=== PATIENT | male | born 1940 | race Caucasian/White ===

== ENCOUNTER 2016-11-10 11:48 | Inpatient (IN) | payer OTHER ==
[2016-11-10] MEDS ORDERED: ONDANSETRON 4 MG/2 ML VIAL IVP ONE (12:24)
[2016-11-10] MEDS ORDERED: LIDOCAINE 2% VISCOUS 15 ML UDCUP PO ONE (12:28)
[2016-11-10] MEDS ORDERED: LET GEL TOPICAL 1 EA SYR TP ONE (12:29)
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
[2016-11-10] MEDS ORDERED: IOPAMIDOL (ISOVUE-300) 100 ML BTL ONE (13:23)
[2016-11-10 15:15] LABS: % IMMATURE GRANULYOCYTES 0.7 % (0.0-1.1); ABSOLUTE IMMATURE GRANULOCYTES 0.11 10^3/uL (0.00-0.10); ADD DIFF? NO; ADD MORPH? NO; ADD SCAN? NO; ATYPICAL LYMPHOCYTE FLAG 0 (0-99); FRAGMENT RBC FLAG 0 (0-99); HEMATOCRIT 38.7 % (40.0-51.0); LEFT SHIFT FLG 30 (0-99); LIPEMIA HEMOLYSIS FLAG 80 (0-99); MEAN CELL HEMOGLOBIN 32.1 pg (27.9-34.1); MEAN CELL HEMOGLOBIN CONCENTR. 33.6 g/dL (32.4-36.7); MEAN CELL VOLUME 95.6 fL (81.5-99.8); MEAN PLATELET VOLUME 9.7 fL (8.7-11.7); PLATELET CLUMPS FLAG 0 (0-99); PLATELET COUNT 248 10^3/uL (150-400); RED BLOOD CELL COUNT 4.05 10^6/uL (4.40-6.38); RED CELL DISTRIBUTION WIDTH 12.3 % (11.5-15.2)
[2016-11-10 15:36] LABS: ANION GAP 9 mEq/L (8-16); CALCIUM 9.1 mg/dL (8.5-10.4); CARBON DIOXIDE 25 mEq/l (22-31); CHLORIDE 107 mEq/L (97-110); CREATININE 0.9 mg/dL (0.7-1.3); GLOMERULAR FILTRATION RATE > 60; GLUCOSE 130 mg/dL (70-100); POTASSIUM 4.2 mEq/L (3.5-5.2); SODIUM 141 mEq/L (134-144)
[2016-11-10] MEDS ORDERED: ONDANSETRON 4 MG/2 ML VIAL IVP PRN (15:41)
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
[2016-11-10] MEDS: HYDROmorphONE/DILAUDID 1 MG/ML SYR IVP PRN ×2 (17:02→22:06)
[2016-11-10] MEDS: OXYCODONE/APAP 5/325 TAB PO PRN ×2 (17:02→20:58)
[2016-11-10] MEDS: KETOROLAC 15 MG/1 ML SDV IVP SCH ×2 (18:04→23:23)
[2016-11-10 20:24] LABS: COLOR YELLOW; LEUKOCYTE ESTERASE,URINE NEGATIVE (NEGATIVE); NITRITE,URINE NEGATIVE (NEGATIVE)
[2016-11-10] MEDS: BACITRACIN OINTMENT 1 PACKET TP SCH (20:59)
--- NOTE | 2016-11-10 21:33 | TRAUMAPN ---
Assessment/Plan: c/o left thigh pain when trying to stand. pain difficult with movement. no cp or sob. CXR - repeat - no PTX. will add oxycontin and obtain left thigh xrays. Objective: Vital Signs Temp Pulse Resp BP Pulse Ox 36.8 C 64 16 111/68 90 L 11/10/16 19:58 11/10/16 19:58 11/10/16 19:58 11/10/16 19:58 11/10/16 19:58 Laboratory Results 11/10/16 15:00 11/10/16 15:00 11/09/16 11/10/16 11/11/16 05:59 05:59 05:59 Intake Total 400 Balance 400
[2016-11-10] MEDS: oxyCODONE IR 5 MG TAB PO PRN (23:23)
[2016-11-11] MEDS: oxyCODONE IR 5 MG TAB PO PRN ×2 (03:18→23:48)
[2016-11-11] MEDS: KETOROLAC 15 MG/1 ML SDV IVP SCH ×4 (06:13→23:42)
[2016-11-11] MEDS: ASPIRIN 81 MG CHEWABLE TAB PO SCH (08:39)
[2016-11-11] MEDS: DOCUSATE SODIUM 100 MG CAP PO SCH ×2 (08:40→20:59)
[2016-11-11] MEDS: ATORVASTATIN CALCIUM 20 MG TAB PO SCH (08:40)
[2016-11-11] MEDS: BACITRACIN OINTMENT 1 PACKET TP SCH ×2 (08:44→21:02)
[2016-11-11] MEDS ORDERED: PROMETHAZINE HCL 25 MG/ML INJ IVP PRN (11:07)
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
[2016-11-11 12:11] LABS: HEMATOCRIT 37.6 % (40.0-51.0); HEMOGLOBIN 12.5 g/dL (13.7-17.5); MEAN CELL HEMOGLOBIN 32.4 pg (27.9-34.1); MEAN CELL HEMOGLOBIN CONCENTR. 33.2 g/dL (32.4-36.7); MEAN CELL VOLUME 97.4 fL (81.5-99.8); RED BLOOD CELL COUNT 3.86 10^6/uL (4.40-6.38); RED CELL DISTRIBUTION WIDTH 12.7 % (11.5-15.2)
[2016-11-11 12:23] LABS: ANION GAP 7 mEq/L (8-16); CALCIUM 8.7 mg/dL (8.5-10.4); CARBON DIOXIDE 28 mEq/l (22-31); CHLORIDE 102 mEq/L (97-110); CREATININE 0.9 mg/dL (0.7-1.3); GLOMERULAR FILTRATION RATE > 60; GLUCOSE 125 mg/dL (70-100); SODIUM 137 mEq/L (134-144)
--- NOTE | 2016-11-11 12:30 | PDIAF ---
- Diagnosis Diagnosis: left scapula fracture, left hip contusion, - Medication Management Discharge Medications: Medications to Continue on Transfer Simvastatin [Zocor] 40 mg PO DAILY 09/08/15 [Last Taken 11/10/16] Aspirin [Aspirin 81mg (*)] 81 mg PO DAILY 11/10/16 [Last Taken 11/10/16] Herbals/Supplements -Info Only 1 ea PO DAILY 11/10/16 [Last Taken Unknown] Multivitamins [Multivitamin (*)] 1 each PO DAILY 11/10/16 [Last Taken Unknown] [place]-3 Fatty Acids [Fish Oil 1000 mg (*)] 1,000 mg PO DAILY 11/10/16 [Last Taken Unknown] Discharge Medications: Refer to the Discharge Home Medication list for PRN reason. - Orders Services needed: Physical Therapy Activity/Weight Bearing Restrictions: rom as tolerated left shoulder. wbat. sling prn. left hip wbat. rom as tolerated. f/u at one month orthopedics - Follow Up Care Current Providers and Referrals: Manohar Guadalupe MD [Medical Doctor] - Ester Glaser MD [Medical Doctor] -
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
[2016-11-11] MEDS: POLYETHYLENE GLYCOL 3350 17 GM PKT PO SCH (14:48)
[2016-11-11] MEDS: ACETAMINOPHEN 500 MG TAB PO SCH ×2 (14:48→20:58)
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
[2016-11-11] MEDS: FAMOTIDINE 20 MG TAB PO SCH (20:59)
[2016-11-11] MEDS ORDERED: FAMOTIDINE 20 MG/NACL 50 ML IV SCH (21:00)
--- NOTE | 2016-11-11 23:59 | SOAPPROG ---
Downtime Inpatient MD Late Entry SOAP Note: CT head reviewed/no ICH or signs of occult injury S MD Leonila, FACS
[2016-11-12] MEDS: ACETAMINOPHEN 500 MG TAB PO SCH ×3 (05:33→21:25)
[2016-11-12] MEDS: KETOROLAC 15 MG/1 ML SDV IVP SCH ×3 (05:34→17:13)
[2016-11-12] MEDS: FAMOTIDINE 20 MG TAB PO SCH ×2 (07:55→20:20)
[2016-11-12] MEDS: ASPIRIN 81 MG CHEWABLE TAB PO SCH (07:55)
[2016-11-12] MEDS: ATORVASTATIN CALCIUM 20 MG TAB PO SCH (07:55)
[2016-11-12] MEDS: DOCUSATE SODIUM 100 MG CAP PO SCH ×2 (07:55→20:20)
[2016-11-12] MEDS: POLYETHYLENE GLYCOL 3350 17 GM PKT PO SCH (07:59)
[2016-11-12] MEDS: oxyCODONE IR 5 MG TAB PO PRN ×3 (07:59→20:21)
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
[2016-11-12] MEDS: LIDOCAINE 5% 1 EA PATCH TD SCH (09:40)
[2016-11-12] MEDS: BACITRACIN OINTMENT 1 PACKET TP SCH ×2 (09:40→17:14)
[2016-11-12] MEDS: ENOXAPARIN 40 MG/0.4 ML SYR SC SCH (09:40)
[2016-11-12] MEDS: PATCH REMOVAL 1 EA PATCH TD SCH (20:24)
[2016-11-13] MEDS: KETOROLAC 15 MG/1 ML SDV IVP SCH ×5 (00:18→23:35)
[2016-11-13 04:55] LABS: ALANINE AMINOTRANSFERASE 35 IU/L (21-72); ALKALINE PHOSPHATASE 49 IU/L (38-126); ANION GAP 8 mEq/L (8-16); ASPARTATE AMINOTRANSFERASE 34 IU/L (17-59); BILIRUBIN,TOTAL 1.1 mg/dL (0.1-1.4); CALCIUM 8.8 mg/dL (8.5-10.4); CARBON DIOXIDE 27 mEq/l (22-31); CHLORIDE 104 mEq/L (97-110); CREATININE 0.9 mg/dL (0.7-1.3); GLOMERULAR FILTRATION RATE > 60; GLUCOSE 93 mg/dL (70-100); POTASSIUM 4.6 mEq/L (3.5-5.2); SODIUM 139 mEq/L (134-144); TOTAL PROTEIN 5.6 g/dL (6.3-8.2)
[2016-11-13] MEDS: ACETAMINOPHEN 500 MG TAB PO SCH ×3 (06:08→21:12)
[2016-11-13] MEDS: POLYETHYLENE GLYCOL 3350 17 GM PKT PO SCH (09:13)
[2016-11-13] MEDS: LIDOCAINE 5% 1 EA PATCH TD SCH (09:13)
[2016-11-13] MEDS: ENOXAPARIN 40 MG/0.4 ML SYR SC SCH (09:13)
[2016-11-13] MEDS: ATORVASTATIN CALCIUM 20 MG TAB PO SCH (09:14)
[2016-11-13] MEDS: DOCUSATE SODIUM 100 MG CAP PO SCH ×2 (09:14→21:13)
[2016-11-13] MEDS: ASPIRIN 81 MG CHEWABLE TAB PO SCH (09:14)
[2016-11-13] MEDS: FAMOTIDINE 20 MG TAB PO SCH ×2 (09:14→21:13)
[2016-11-13] MEDS: BACITRACIN OINTMENT 1 PACKET TP SCH ×2 (09:31→21:13)
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
--- NOTE | 2016-11-13 17:36 | WOCRNPDOC ---
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 Advised applying wound gel to both wounds and covering w/ Allevyn dressing. Left Shoulder Abrasion Dressing Type: Allevyn Life Dressing Description: Intact Exudate Amount: Scant Exudate Color: Reddish/Yellow Exudate Characteristic(s): Serosanguinous Integumentary Issue Intervention: Visualized Under Dressing Wound Bed Color: [place], Red Skin Integrity Problem Comment: Superficial abrasion w/ partial-thickness tissue loss noted. No associated swelling or rosy-wound erythema. Continue to keep site covered and moist for optimal wound healing.
[2016-11-13] MEDS: PATCH REMOVAL 1 EA PATCH TD SCH (21:18)
[2016-11-13 23:16] VITALS: PULSE 65
[2016-11-13] MEDS: oxyCODONE IR 5 MG TAB PO PRN (23:35)
[2016-11-14] MEDS: KETOROLAC 15 MG/1 ML SDV IVP SCH ×2 (05:54→15:01)
[2016-11-14] MEDS: ACETAMINOPHEN 500 MG TAB PO SCH ×2 (05:55→15:38)
[2016-11-14 08:57] VITALS: BP 146/78; RESP 14; TEMP 98.1; O2SAT 91
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
[2016-11-14] MEDS: ATORVASTATIN CALCIUM 20 MG TAB PO SCH (10:23)
[2016-11-14] MEDS: FAMOTIDINE 20 MG TAB PO SCH (10:23)
[2016-11-14] MEDS: ASPIRIN 81 MG CHEWABLE TAB PO SCH (10:23)
[2016-11-14] MEDS: DOCUSATE SODIUM 100 MG CAP PO SCH (10:23)
[2016-11-14] MEDS: LIDOCAINE 5% 1 EA PATCH TD SCH (10:24)
[2016-11-14] MEDS: ENOXAPARIN 40 MG/0.4 ML SYR SC SCH (10:24)
[2016-11-14] MEDS: POLYETHYLENE GLYCOL 3350 17 GM PKT PO SCH (10:25)
[2016-11-14] MEDS: BACITRACIN OINTMENT 1 PACKET TP SCH (10:25)
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
== END 2016-11-14 16:02 | disposition home or self-care (01) | DRG 184 ==
LOC: EDUNIT# → F3N 16:35 → OBSVTOIN 11-11 11:03
PROVIDERS: ADMIT Surgery; ATTEND Surgery
PROC: 0HQ1XZZ Repair Face Skin, External Approach (ICD-10-PCS; principal; 2016-11-11)
DX: S22.42XA Multiple fractures of ribs, left side, initial encounter for closed fracture (principal); S42.112A Displaced fracture of body of scapula, left shoulder, initial encounter for closed fracture; S27.329A Contusion of lung, unspecified, initial encounter; S42.022A Displaced fracture of shaft of left clavicle, initial encounter for closed fracture; S01.112A Laceration without foreign body of left eyelid and periocular area, initial encounter; S70.02XA Contusion of left hip, initial encounter; V18.0XXA Pedal cycle driver injured in noncollision transport accident in nontraffic accident, initial encounter; Y92.488 Other paved roadways as the place of occurrence of the external cause; Y93.55 Activity, bike riding; E78.5 Hyperlipidemia, unspecified; Z79.82 Long term (current) use of aspirin
CPT/HCPCS: 82947-QW; 92523-GN; 96374; 97116-GP; 97162-GP; 97165-GO; 97530-GP; 97535-GO; G8978-GP-CL; G8979-GP-CI; G8980-GP-CI; G8987-GO-CK; G8988-GO-CI; J1170; J1650; J1885; J2405; J2550; Q9967

== ENCOUNTER → 2017-02-01 | Outpatient (CLI) | payer OTHER | LOC: FIMAGING 13:43 | PROVIDERS: ATTEND Family Medicine | DX: S42.112D Displaced fracture of body of scapula, left shoulder, subsequent encounter for fracture with routine healing (principal); S22.42XD Multiple fractures of ribs, left side, subsequent encounter for fracture with routine healing; S42.025D Nondisplaced fracture of shaft of left clavicle, subsequent encounter for fracture with routine healing ==

== ENCOUNTER 2018-08-07 11:54 | Emergency (ER) | payer OTHER ==
--- NOTE | 2018-08-07 12:04 | EDPHY ---
H & P Time Seen by Provider: 08/07/18 12:04 HPI/ROS: HPI: This is a 78-year-old male who presents with Chief Complaint: Left wrist injury Location: Left wrist Quality: Injury Duration: 1 hr prior to arrival Signs and Symptoms: No bleeding, no radiation, no numbness, no weakness, no tingling, no incontinence, + decreased range of motion, + swelling, + pain, no fever Timing: Acute Severity: 10/17 Context: Patient is right-hand dominant, presents accompanied by his with accidentally falling on outstretched left wrist approximately 1 hr prior to arrival. Patient was standing at restoration and tripped over his feet and started to fall forward over the balcony so he stopped himself with his left hand and wrist. He reports that he felt immediate, constant, radiating pain down into his left fingers from the radial aspect of his left wrist. He noted swelling over this area with decreased flexion and extension secondary to pain. Denies LOC/head injury/neck pain/dizziness/nausea/vomiting/amnesia. Modifying Factors: None Comment: ROS: A comprehensive 10 system review of systems is otherwise negative aside from elements mentioned in the history of present illness. MEDICAL/SURGICAL/SOCIAL HISTORY: Medical history: Hypercholesteremia, back injuries. Surgical history: Denies Social history: , retired. Former smoker. CONSTITUTIONAL: Well-developed, well-nourished elderly white male, at bedside, dressed in restoration clothes, awake and alert, no obvious distress HEENT: Atraumatic and normocephalic. Wears glasses. NECK: supple, no midline tenderness, flexion 45 degrees, extension 45 degrees, right and left lateral flexion 45 degrees. No meningismus. Cardiovascular: Normal S1/S2, regular rate, regular rhythm, without murmur rub or gallop. PULMONARY/CHEST: Symmetrical and nontender. no crepitus. Clear to auscultation bilaterally. Good air movement. No accessory muscle usage. ABDOMEN: Soft, nondistended, nontender, no ecchymosis. EXTREMITIES: 2/2 pulses, strength 5/5, left wrist shows deformity and swelling on the radial aspect; tenderness to palpation over the radial styloid. Decreased extension to 30, decreased flexion to 40, decreased radial deviation to 5, decreased ulnar deviation to 15, no scaphoid tenderness, no tenderness over ulna styloid. DIP/PIP/MCP flexion/extension intact with good light touch sensation. Left ELBOW: Full extension to 180, flexion to 150, no tenderness over medial epicondyle, no tenderness over lateral epicondyle, no effusion. no clubbing, no cyanosis or edema. NEUROLOGICAL: no focal neuro deficits. GCS 15. Light touch sensation intact. SKIN: Warm and dry, left elbow 1 cm x 1 cm superficial skin tear noted. no rash. Good capillary refill. Source: Patient, Family () Exam Limitations: No limitations - Medical/Surgical History Hx Asthma: No Hx Chronic Respiratory Disease: No Hx Diabetes: No Hx Cardiac Disease: No Hx Renal Disease: No Hx Cirrhosis: No Hx Alcoholism: No Hx HIV/AIDS: No Hx Splenectomy or Spleen Trauma: No Other PMH: cholesterol, back injuries - Social History Smoking Status: Former smoker Constitutional: Initial Vital Signs Temperature (C) 36.7 C 08/07/18 12:02 Heart Rate 66 08/07/18 12:02 Respiratory Rate 17 08/07/18 12:02 Blood Pressure 170/85 H 08/07/18 12:02 O2 Sat (%) 96 08/07/18 12:02 O2 Delivery Mode Room Air Allergies/Adverse Reactions: diazepam [From Valium] Allergy (Mild, Verified 08/07/18 12:00) dizzy oxycodone [From OxyContin] Allergy (Verified 08/07/18 12:00) Home Medications: Medication Instructions Recorded Simvastatin [Zocor] 40 mg PO DAILY 09/08/15 Aspirin [Aspirin 81mg (*)] 81 mg PO DAILY 11/10/16 Multivitamins [Multivitamin (*)] 1 each PO DAILY 11/10/16 [place]-3 Fatty Acids [Fish Oil 1000 1,000 mg PO DAILY 11/10/16 mg (*)] traMADol [Ultram 50 mg (*)] 50 mg PO Q6 PRN #10 tab 08/07/18 Medical Decision Making - Diagnostics Imaging Results: Imaging Impressions Wrist X-Ray 08/07/18 12:13 Impression: Comminuted, displaced, and angulated intraarticular fracture of the distal left radius. Minimally displaced fracture of the ulnar styloid. Procedures: Procedure: Splint placement. A left sugar-tong Ortho Glass splint and sling were applied. After application of the splint I returned and re-examined the patient. The splint was adequately immobilizing the joint and distal to the splint the patient's circulation and sensation was intact. ED Course/Re-evaluation: Vital signs reviewed and stable upon arrival. Ice pack applied Patient does not like taking opiates Agreeable to taking Tylenol and ibuprofen Left wrist x-ray at bedside shows mildly displaced left distal radius fracture and Minimally displaced fracture of the ulnar styloid. Placed in sugar-tong Ortho Glass splint, sling, orthopedic follow-up skin tear on left elbow; irrigated; skin tear dressing kit written and verbal wound care instructions provided No signs of neurovascular compromise/tenting of skin/compartment syndrome/ extremities and joints examined above and below area of concern and are neurovascularly intact. This patient was seen under the supervision of my primary supervising physician. I evaluated care for this patient with attending. Differential Diagnosis: Wrist injury differential radial fracture, ulnar fracture, scaphoid fracture, sprain, contusion, nerve injury, tendon injury. - Data Points Medications Given: Discontinued Medications Acetaminophen (Tylenol) 1,000 mg PO EDNOW ONE Stop: 08/07/18 12:15 Last Admin: 08/07/18 12:27 Dose: 1,000 mg Ibuprofen (Motrin) 600 mg PO EDNOW ONE Stop: 08/07/18 12:15 Last Admin: 08/07/18 12:27 Dose: 600 mg Departure - Departure Disposition: Home, Routine, Self-Care Clinical Impression: Nondisplaced fracture of left ulna styloid process, initial encounter for closed fracture Closed fracture of left distal radius Qualifiers: Encounter type: initial encounter Fracture morphology: unspecified fracture morphology Qualified Code(s): S52.502A - Unspecified fracture of the lower end of left radius, initial encounter for closed fracture Skin tear of left elbow without complication Qualifiers: Encounter type: initial encounter Qualified Code(s): S51.012A - Laceration without foreign body of left elbow, initial encounter Condition: Good Instructions: Wrist Fracture in Adults (ED), How to Use a Sling (ED), Splint Care (ED), Skin Tear (ED), ORIF of a Wrist Fracture (DC) Additional Instructions: Keep the splint dry and in place until seen by Orthopedics. Wear sling while out of bed for support and comfort. Take Tylenol 650 mg every 4 hours and/or Ibuprofen 600 mg every 8 hours with food as needed for pain. Use tramadol every 6 hours as needed for severe/break through pain. Apply ice for 30 minutes at a time; 2-3 times per day for the next 1-2 days. Follow up with Orthopedics in 5-7 days at which time they will evaluate and recommend with you if conservative management versus surgery is indicated. Keep the dressing over your skin tear dry and in place for 48 hours. After 48 hours, you may remove the dressing; wash the site daily with mild soap and water; then pat dry. Apply topical antibiotic ointment and keep covered with sterile dressing until fully healed. Do not soak in a bathtub or go swimming until sutures are removed. Referrals: Woo Zuleta MD [Medical Doctor] - As per Instructions Prescriptions: traMADol [Ultram 50 mg (*)] 50 mg PO Q6 PRN #10 tab PRN Reason: Pain, Severe
[2018-08-07 12:05] VITALS: BP 170/85
[2018-08-07] MEDS ORDERED: ACETAMINOPHEN 500 MG TAB PO ONE (12:14)
[2018-08-07] MEDS ORDERED: IBUPROFEN 600 MG TAB PO ONE (12:14)
== END 2018-08-07 13:11 | disposition home or self-care (01) ==
PROC: 2W3DX1Z Immobilization of Left Lower Arm using Splint (ICD-10-PCS; principal; 2018-08-07)
DX: S52.502A Unspecified fracture of the lower end of left radius, initial encounter for closed fracture (principal); W01.0XXA Fall on same level from slipping, tripping and stumbling without subsequent striking against object, initial encounter; Y92.22 Religious institution as the place of occurrence of the external cause
CPT/HCPCS: 29125; 73110; 99283; A4565

== ENCOUNTER → 2018-09-28 | Outpatient (CLI) | payer OTHER | LOC: BMCIMAGING 08:57 | PROVIDERS: ATTEND Physician Assistant | DX: S52.532D Colles' fracture of left radius, subsequent encounter for closed fracture with routine healing (principal); S52.615D Nondisplaced fracture of left ulna styloid process, subsequent encounter for closed fracture with routine healing ==